=== PATIENT | male | born 1945 | race Caucasian/White ===

== ENCOUNTER 2017-02-03 15:59 | Emergency (ER) | payer OTHER ==
[~2017-02-03] VITALS: Ht 182.9 cm; Wt 107.6 kg
[~2017-02-03 15:59] MED LIST: CYM60 PO; GABA800T PO; GLIM1TAB2 PO; MAGN400T6 PO; METFTAB PO; METO100T14 PO; MULT-513 PO; OMEG10007 PO; OXYC1TAB3 PO; PRLSR20 PO; WARF5TAB90 PO; WARF7.5T PO
[2017-02-03 16:03] VITALS: TEMP 36.5; Ht 182.9 cm; Wt 107.6 kg
[2017-02-03 16:55] LABS: URINE APPEARANCE TURBID (CLEAR); URINE BILIRUBIN NEG (NEG); URINE COLOR DK YELLOW; URINE EPITHELIAL CELL AUTO 20-30 /lpf (0-5); URINE NITRITE POS (NEG); URINE PH 5.5 (4.5-7.5); UROBILINOGEN NEG (NEG); ZZUR CULT IF INDIC CLEAN CATCH YES
[2017-02-03 16:56] LABS: MANUAL MICROSCOPIC REQUIRED? NO; REVIEW REQ? NO
[2017-02-03] MEDS ORDERED: CEFTRIAXONE SOD INJ 1 GM ADDVIAL IV STA (17:09)
[2017-02-03] MEDS ORDERED: LSN5 PO (17:13)
[2017-02-03] MEDS ORDERED: CYM60 PO (17:13)
[2017-02-03] MEDS ORDERED: TADA5TAB11 PO (17:13)
[2017-02-03] MEDS ORDERED: SITA1TAB27 PO (17:13)
[2017-02-03] MEDS ORDERED: LPT40 PO (17:13)
[2017-02-03] MEDS ORDERED: OPTIRAY 320 IV PRN (17:15)
[2017-02-03 17:35] LABS: INR 1.9 (0.9-1.1); PROTHROMBIN TIME (PATIENT) 21.2 SECONDS (9.0-12.0)
[2017-02-03 17:46] LABS: BUN/CREATININE RATIO 16.5 (10-20); CALCIUM 9.2 mg/dl (8.5-10.1); CREATININE 1.3 mg/dl (0.60-1.40); POTASSIUM 4.4 mmol/L (3.5-5.1)
[2017-02-03 17:52] LABS: BASO % 0.2 %; BASO ABS # 0.02 K/uL (0-0.2); COMPLETE YES; EOS % 1.8 %; HEMATOCRIT 42.5 % (42-52); IG% 0.3 %; LYMPH % 13.1 %; LYMPH ABS # 1.15 K/uL (1.2-3.4); MEAN CELL VOLUME 86.9 fL (80-100); MEAN CORPUSCULAR HEMOGLOBIN 29.9 pg (25-34); MEAN CORPUSCULAR HGB CONC 34.4 g/dl (32-36); NEUT % 73.6 %; PLATELET COUNT 117 K/uL (130-400); PLT ESTIMATE DECREASED; RED BLOOD COUNT 4.89 M/uL (4.7-6.1); WHITE BLOOD COUNT 8.79 K/uL (4.8-10.8)
--- NOTE | 2017-02-03 18:05 | EMERGENCY ROOM VISIT NOTE ---
History Report prepared by Lemuel: Shiloh Ca Under the Supervision of: Dr. Speedy Walden M.D. First contact with patient: 16:29 Chief Complaint: URINARY SYMPTOMS Stated Complaint: BLADDER INFECTION Nursing Triage Summary: foul smelling urine, abd cramping. Incontinence. Feels dehydrated. History of Present Illness The patient is a 71 year old male who presents to the Emergency Room with complaints of persistent urinary symptoms starting 2 days ago. The patient has a history of UTI. He gets them 1-2 times per year. His last UTI was 2015. His doctors are unsure of the reason for his UTIs. His symptoms began with urinary incontinence. He notes that he felt the urge to urinate without a lot of warning. He would only urinate a small amount. He does feel like he is emptying his bladder. He had some headache and nausea yesterday which has resolved. He denies any bowel incontinence, diarrhea, fever, chills, vomiting, back pain, or abdominal pain. He notes that he does not drink a lot of fluids and has been drinking less since he started having incontinence. He does not have an enlarged prostate. He had a nerve stimulator taken out 4 days ago. The nerve stimulator was placed for leg pain which started as back pain. He has a history of ruptured AAA and diabetes. Source of History: patient Onset: 2 days ago Position: other (global) Quality: other (urinary symptoms) Timing: other (persistent) Associated Symptoms: + headache, + nausea, No fevers, No chills, No vomiting , No abdominal pain, No back pain, No diarrhea Note: Pt reports urinary incontinence. Pt denies bowel incontinence. Review of Systems See HPI for pertinent positives and negatives. A total of ten systems were reviewed and were otherwise negative. Past Medical & Surgical Medical Problems: (1) Diabetes (2) History of blood clots (3) History of diabetes mellitus (4) History of heart disease (5) History of hypertension (6) History of kidney stones (7) Hypertension Family History Diabetes mellitus FH: heart disease Gallbladder disease Hypertension Kidney disease Kidney stones Social History Smoking Status: Former Smoker Alcohol Use: none Drug Use: none Occupation Status: unemployed Current/Historical Medications Scheduled Atorvastatin (Atorvastatin Calcium), 40 MG PO DAILY Cefpodoxime Proxetil (Cefpodoxime Proxetil), 1 TAB PO BID Duloxetine HCl (Duloxetine HCl), 60 MG PO DAILY Fish Oil (Frazer-3), 2,000 MG PO DAILY Gabapentin (Neurontin), 800 MG PO TID Glimepiride (Glimepiride), 1 MG PO DAILY Lisinopril (Lisinopril), 5 MG PO DAILY Magnesium Oxide (Mag-Ox), 400 MG PO DAILY Metformin Ext Rel (Glucophage Ext Rel), 1,000 MG PO DAILY Metoprolol Tartrate (Lopressor) (Lopressor), 100 MG PO DAILY Multivitamins/Minerals (Mvi With Minerals), 1 TAB PO DAILY Omeprazole (Prilosec), 20 MG PO DAILY Sitagliptin (Januvia), 100 MG PO DAILY Tadalafil (Cialis), 5 MG PO DAILY Warfarin Sodium (Coumadin), 5 MG PO 5XWK Warfarin Sodium (Coumadin), 7.5 MG PO 2XWK Scheduled PRN Oxycodone Ir (Roxicodone Ir), 5 MG PO Q6H PRN for Pain Allergies Coded Allergies: Niacin (Verified Allergy, Intermediate, rash, SOB, 01/23/14) Physical Exam Vital Signs Date Time Temp Pulse Resp B/P (MAP) Pulse Ox O2 Delivery O2 Flow Rate FiO2 02/03/17 18:34 96 18 147/77 95 Room Air 02/03/17 16:03 36.5 95 16 120/77 94 Room Air Physical Exam GENERAL: Awake, alert, fatigued-appearing, in no acute distress HENT: Normocephalic, atraumatic. Mucous membranes dry. EYES: Normal conjunctiva. Sclera non-icteric. NECK: Supple. No nuchal rigidity. FROM. No JVD. RESPIRATORY: Clear to auscultation. CARDIAC: Regular rate, normal rhythm. Extremities warm and well perfused. Pulses equal. ABDOMEN: Obese, but soft. No tenderness to palpation. No rebound or guarding. No masses. : Nontender to palpation of the epididymis and testicles, cremaster normal. RECTAL: Prostate nontender to palpation, good rectal tone. MUSCULOSKELETAL: Chest examination reveals no tenderness. The back is symmetrical on inspection without obvious abnormality. There is no CVA tenderness to palpation. No joint edema. 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 Biphasic dopplerable DP/PT pulse in the left lower extremity. NEURO: Normal sensorium. No sensory or motor deficits noted. SKIN: No rash or jaundice noted. Medical Decision & Procedures Laboratory Results 02/03/17 17:20 Red Blood Count 4.89, Mean Corpuscular Volume 86.9, Mean Corpuscular Hemoglobin 29.9, Mean Corpuscular Hemoglobin Concent 34.4, Mean Platelet Volume 12.0, Neutrophils (%) (Auto) 73.6, Lymphocytes (%) (Auto) 13.1, Monocytes (%) (Auto) 11.0, Eosinophils (%) (Auto) 1.8, Basophils (%) (Auto) 0.2, Neutrophils # (Auto ) 6.46, Lymphocytes # (Auto) 1.15, Monocytes # (Auto) 0.97, Eosinophils # (Auto ) 0.16, Basophils # (Auto) 0.02 02/03/17 17:20 Test 02/03/17 16:35 02/03/17 17:20 Urine Color DK YELLOW Urine Appearance TURBID (CLEAR) Urine pH 5.5 (4.5-7.5) Urine Specific [place] 1.020 (1.000-1.030) Urine Protein 1+ (NEG) Urine Glucose (UA) NEG (NEG) Urine Ketones NEG (NEG) Urine Occult Blood 2+ (NEG) Urine Nitrite POS (NEG) Urine Bilirubin NEG (NEG) Urine Urobilinogen NEG (NEG) Urine Leukocyte Esterase LARGE (NEG) Urine WBC (Auto) >30 /hpf (0-5) Urine RBC (Auto) 5-10 /hpf (0-4) Urine Hyaline Casts (Auto) 1-5 /lpf (0-5) Urine Epithelial Cells (Auto) 20-30 /lpf (0-5) Urine Bacteria (Auto) 4+ (NEG) White Blood Count 8.79 K/uL (4.8-10.8) Red Blood Count 4.89 M/uL (4.7-6.1) Hemoglobin 14.6 g/dL (14.0-18.0) Hematocrit 42.5 % (42-52) Mean Corpuscular Volume 86.9 fL (80-100) Mean Corpuscular Hemoglobin 29.9 pg (25-34) Mean Corpuscular Hemoglobin Concent 34.4 g/dl (32-36) Platelet Count 117 K/uL (130-400) Mean Platelet Volume 12.0 fL (7.4-10.4) Neutrophils (%) (Auto) 73.6 % Lymphocytes (%) (Auto) 13.1 % Monocytes (%) (Auto) 11.0 % Eosinophils (%) (Auto) 1.8 % Basophils (%) (Auto) 0.2 % Neutrophils # (Auto) 6.46 K/uL (1.4-6.5) Lymphocytes # (Auto) 1.15 K/uL (1.2-3.4) Monocytes # (Auto) 0.97 K/uL (0.11-0.59) Eosinophils # (Auto) 0.16 K/uL (0-0.5) Basophils # (Auto) 0.02 K/uL (0-0.2) RDW Standard Deviation 47.0 fL (36.4-46.3) RDW Coefficient of Variation 14.8 % (11.5-14.5) Immature Granulocyte % (Auto) 0.3 % Immature Granulocyte # (Auto) 0.03 K/uL (0.00-0.02) Platelet Estimate DECREASED Red Blood Cell Morphology Unremarkable Prothrombin Time 21.2 SECONDS (9.0-12.0) Prothromb Time International Ratio 1.9 (0.9-1.1) Anion Gap 5.0 mmol/L (3-11) Est Creatinine Clear Calc Drug Dose 68.0 ml/min Estimated GFR () 64.5 Estimated GFR (Non- 55.7 BUN/Creatinine Ratio 16.5 (10-20) Calcium Level 9.2 mg/dl (8.5-10.1) Laboratory results reviewed by me Medications Administered Medications (Trade) Dose Ordered Sig/Dorinda Route Start Time Stop Time Status Last Admin Dose Admin Ceftriaxone Sodium (Rocephin Inj) 1 gm NOW STAT IV 02/03/17 17:09 02/03/17 17:12 DC 02/03/17 17:41 1 GM ED Course 1641: The patient was evaluated in room C1B. A complete history and physical exam was performed. 1709: Rocephin Inj 1 gm IV. 1725: I reevaluated the patient. He has a history of epididymitis. I performed a exam. Findings as listed above in physical exam. Medical Decision I reviewed the patient's past medical history, medications, and the nursing notes as described above. Differential diagnosis: UTI, renal stone, epididymitis, uncontrolled diabetes. Patient is a 71-year-old gentleman with a complicated past medical history recurrent UTI, ruptured AAA, diabetes presents to the emergency department complaining of urinary frequency for the past couple of days which he says is consistent with previous UTIs in the past per history of present illness. Patient arrives to the emergency department in no acute distress, afebrile with stable vital signs. Abdomen soft nontender nondistended and prostate nontender to palpation. Exam unremarkable. The patient's UA was grossly positive with gross hematuria. Otherwise CBC and creatinine within normal limits. Considering the patient's report of chronic back pain in the setting of these urinary symptoms infected stone is within differential. Patient was treated with ceftriaxone in the emergency department. CT scan was negative for renal stone and otherwise showed findings consistent with cystitis. Incidental vascular findings were discussed with radiology and appear chronic. Moreover the patient has a strong biphasic dopplerable pulse in the left lower extremity. The patient also recalls discussing "a bypass that wasn't really working" with his vascular surgeon in the past. Findings and plan discussed with patient and plan for antibiotics, PCP follow-up, and vascular surgery follow-up. Patient discharged per instructions. Impression Primary Impression: Urinary tract infection Scribe Attestation The scribe's documentation has been prepared under my direction and personally reviewed by me in its entirety. I confirm that the note above accurately reflects all work, treatment, procedures, and medical decision making performed by me. Departure Information Dispostion Home / Self-Care Prescriptions Cefpodoxime Proxetil (CEFPODOXIME PROXETIL) 100 Mg Tab 1 TAB PO BID for 7 Days, #14 TABS Prov: Speedy Walden M.D. 02/03/17 Referrals Dawson Lama III, M.D. 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 Your urine showed a urinary tract infection and given antibiotics for this. Otherwise, your exam, lab results, and CT scan did not show signs of an emergent condition. Return to the emergency department for worsening symptoms as described in the accompanying instructions.
--- NOTE | 2017-02-03 19:01 | DIAGNOSTIC IMAGING REPORT ---
CT SCAN OF THE ABDOMEN AND PELVIS WITH IV CONTRAST CLINICAL HISTORY: Bladder infection. COMPARISON STUDY: Abdominal CT dated 07/08/2007. TECHNIQUE: Following the IV administration of 93 cc of Optiray 320, CT scan of the abdomen and pelvis is performed from the lung bases to the proximal femora. Images are reviewed in the axial, sagittal, and coronal planes. IV contrast was administered without complication. Automated dose control exposure was utilized. A dose lowering technique was utilized adhering to the principles of ALARA. CT DOSE: 1395.20 mGy.cm FINDINGS: Lung bases: The heart is normal in size and without pericardial effusion. The coronary arteries are densely calcified. Emphysema is noted at the lung bases. There is no airspace consolidation or pleural effusion. There is a small hiatal hernia. Liver: The contrast-enhanced liver is enlarged, measuring 23 cm in length. The liver demonstrates diffusely diminished attenuation consistent with severe hepatic steatosis. Fatty sparing is seen adjacent to gallbladder fossa. There is no intrahepatic biliary ductal dilatation. The hepatic veins and portal veins are patent. Gallbladder: There are numerous calcified gallstones. There is no CT evidence of acute cholecystitis. Spleen: Normal in size and attenuation. Pancreas: Unremarkable. Adrenal glands: Unremarkable. Kidneys: The contrast enhanced kidneys demonstrate cortical atrophy and are without hydronephrosis. The kidneys enhance symmetrically. Abdominal vasculature: There is advanced atherosclerotic disease identified involving the abdominal aorta. There is a small infrarenal abdominal aortic aneurysm which measures 4.1 cm in AP diameter and 3.3 cm in transverse diameter. 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 The left bypass graft appears thrombosed. The right bypass graft is patent. Flow is shown within the heavily calcified [place] iliac arteries. Bowel: An umbilical hernia contains a nonobstructed segment of small bowel. No bowel obstruction is seen. There is mild colonic diverticulosis without CT evidence of acute diverticulitis. The appendix is well-visualized and normal. Peritoneum: There is no intraperitoneal free air or abdominal ascites. Lymphadenopathy: None. Pelvic viscera: The bladder wall is thickened and hyperemic. There is pericystic inflammation. The appearance is typical for cystitis. The prostate and seminal vesicles are normal as imaged. There are bilateral fat-containing inguinal hernias. Skeletal structures: The skeletal structures are osteopenic. There is lumbosacral spondylosis with evidence of laminectomy at and posterior fusion at L5-S1. No lytic or blastic lesions are seen. IMPRESSION: 1. Findings are typical for cystitis. Correlation with clinical findings and urinalysis will be required. 2. Hepatomegaly and severe hepatic steatosis. 3. Cholelithiasis. 4. There is a 4.1 cm infrarenal abdominal aortic aneurysm. 5. There is a small bowel containing umbilical hernia. No bowel obstruction is seen. 6. 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 The left iliac graft appears thrombosed. Flow is shown within the heavily calcified [place] iliac arteries. 7. Additional findings as above. Electronically signed by: Nimesh Medrano M.D. 02/03/2017 6:59 PM Dictated Date/Time: 02/03/2017 6:50 PM
[2017-02-03] MEDS ORDERED: CEFP100T7 PO (19:31)
[2017-02-03 19:50] VITALS: BP 131/71; PULSE 81; O2SAT 97
--- NOTE | 2017-02-05 15:21 | Pharmacy Progress Note ---
ED Pharmacist Culture FollowUp Date of Service: Feb 05, 2017. Patient was sent home with a prescription for cefpodoxime, which should cover the E. coli growing from the patient's urine culture.
== END 2017-02-03 19:51 | disposition home or self-care (01) ==
LOC: C.EDB 16:01 → C.EDC 19:51
DX: N39.0 Urinary tract infection, site not specified (principal); N40.0 Benign prostatic hyperplasia without lower urinary tract symptoms; E11.9 Type 2 diabetes mellitus without complications; I10 Essential (primary) hypertension; Z87.440 Personal history of urinary (tract) infections; Z86.79 Personal history of other diseases of the circulatory system; Z87.442 Personal history of urinary calculi; Z86.718 Personal history of other venous thrombosis and embolism; Z87.891 Personal history of nicotine dependence; Z79.84 Long term (current) use of oral hypoglycemic drugs; Z79.01 Long term (current) use of anticoagulants; Z83.3 Family history of diabetes mellitus; Z82.49 Family history of ischemic heart disease and other diseases of the circulatory system; Z84.1 Family history of disorders of kidney and ureter

== ENCOUNTER 2017-05-01 20:16 | Emergency (ER) | payer OTHER ==
[~2017-05-01] VITALS: Ht 182.9 cm; Wt 108.0 kg
[~2017-05-01 20:16] MED LIST changes: +LPT40 PO; +LSN5 PO; +SITA1TAB27 PO; +TADA5TAB11 PO
[2017-05-01 20:22] VITALS: TEMP 36.9; Ht 182.9 cm; Wt 108.0 kg
[2017-05-01] MEDS ORDERED: MBXC OR (21:11)
[2017-05-01] MEDS ORDERED: DEXAMETHASONE CONC SOLN 0.078 MG, NYSTATIN SUSP 0.625 ML, DiphenhydrAMINE HCL SYRUP 6.2... PO STA ×5 (21:14)
[2017-05-01] MEDS ORDERED: MAGIC SWIZZLE PO ONE (21:15)
[2017-05-01] MEDS ORDERED: LIDOCAINE HCL 2% VISCOUS SOLN 1.25 ML, DiphenhydrAMINE HCL SYRUP 3.125 MG, ALUMINUM/MAG... MT STA ×4 (21:25)
[2017-05-01 21:53] VITALS: BP 141/79; PULSE 85; O2SAT 94
--- NOTE | 2017-05-02 00:03 | EMERGENCY ROOM VISIT NOTE ---
History Report prepared by Lemuel: Maggie Kennedy Under the Supervision of: Jorge FryeO. First contact with patient: 20:41 Chief Complaint: OTHER COMPLAINT Stated Complaint: FOOT AND MOUTH History of Present Illness The patient is a 71 year old male who presents to the Emergency Room with complaints of worsening mouth pain for the past 4 days. Initially he noticed a small lesion on the inside of his lower lip. He now has multiple painful sores throughout his mouth and into his throat. He has pain with swallowing. The patient has a history of cold sores. He denies any rash on his hands or feet. He lives alone and denies any sick contacts. Pt denies headache, fevers, chest pain, shortness of breath, nausea, vomiting, diarrhea, pain with urination, and melena. The patient rates his pain as a 5/10 in severity. Source of History: patient Onset: 4 days ago Position: lip, throat Symptom Intensity: 5/10 Quality: other (sore) Timing: worsening Modifying Factors (Worsening): other (swallowing) Associated Symptoms: No fevers, No headache, No chest pain, No SOB, No nausea, No vomiting, No melena, No diarrhea, No urinary symptoms, No rash Review of Systems See HPI for pertinent positives & negatives. A total of 10 systems reviewed and were otherwise negative. Past Medical & Surgical Medical Problems: (1) Diabetes (2) History of blood clots (3) History of diabetes mellitus (4) History of heart disease (5) History of hypertension (6) History of kidney stones (7) Hypertension Family History Diabetes mellitus FH: heart disease Gallbladder disease Hypertension Kidney disease Kidney stones Social History Smoking Status: Former Smoker Alcohol Use: none Drug Use: none Housing Status: lives alone Occupation Status: unemployed Current/Historical Medications Scheduled Atorvastatin (Atorvastatin Calcium), 40 MG PO DAILY Duloxetine HCl (Duloxetine HCl), 60 MG PO DAILY Fish Oil ([place]-3), 2,000 MG PO DAILY Gabapentin (Neurontin), 800 MG PO BID Glimepiride (Glimepiride), 1 MG PO DAILY Lisinopril (Lisinopril), 5 MG PO DAILY Magic Swizzle (Magic Swizzle - SUCRALFA/ALUM/MAG/DIPHEN/LIDO), 3-4 TSP OR Q6H Magnesium Oxide (Mag-Ox), 400 MG PO DAILY Metformin Ext Rel (Glucophage Ext Rel), 1,000 MG PO DAILY Metoprolol Tartrate (Lopressor) (Lopressor), 100 MG PO DAILY Multivitamins/Minerals (Mvi With Minerals), 1 TAB PO DAILY Omeprazole (Prilosec), 20 MG PO DAILY Sitagliptin (Januvia), 100 MG PO DAILY Tadalafil (Cialis), 5 MG PO DAILY Warfarin Sodium (Coumadin), 5 MG PO 5XWK Warfarin Sodium (Coumadin), 7.5 MG PO 2XWK Scheduled PRN Oxycodone Ir (Roxicodone Ir), 5 MG PO Q6H PRN for Pain Allergies Coded Allergies: Niacin (Verified Allergy, Intermediate, rash, SOB, 01/23/14) Physical Exam Vital Signs Date Time Temp Pulse Resp B/P (MAP) Pulse Ox O2 Delivery O2 Flow Rate FiO2 05/01/17 21:53 85 20 141/79 94 05/01/17 20:22 36.9 85 20 146/81 92 Room Air Physical Exam GENERAL: Sitting up in bed, disheveled, alert, well appearing, well nourished, no distress, non-toxic EYE EXAM: normal conjunctiva. OROPHARYNX: Multiple oral lesions on inner lip, soft palate, and tongue, mucous membranes are moist NECK: supple, no nuchal rigidity, no adenopathy, non-tender LUNGS: Clear to auscultation. Normal chest wall mechanics HEART: no murmurs, S1 normal and S2 normal ABDOMEN: abdomen soft, non-tender, normo-active bowel sounds, no masses, no rebound or guarding. BACK: Back is symmetrical on inspection and there is no deformity, no midline tenderness, no CVA tenderness. SKIN: no rashes and no bruising UPPER EXTREMITIES: upper extremities are grossly normal. No lesions present. LOWER EXTREMITIES: No pitting edema. Right above the knee amputation, LLE without lesions. NEURO EXAM: Normal sensorium Medical Decision & Procedures Medications Administered Medications (Trade) Dose Ordered Sig/Dorinda Route Start Time Stop Time Status Last Admin Dose Admin Lidocaine HCl/ Diphenhydramine HCl/Al Hydroxide/ Mg Hydroxide/ Glycerin/Barcode NOW STAT MT 05/01/17 21:25 05/01/17 21:26 DC 05/01/17 21:48 5 ML ED Course ED COURSE: Vital signs were reviewed and showed hypertensive. The patients medical record was reviewed The above diagnostic studies were performed and reviewed. ED treatments and interventions as stated above. 2040: The patient was evaluated in room C3. A complete history and physical examination was performed. 2124: Lidocaine HCl/Diphenhydramine HCl/Al Hydroxide/Mg Hydroxide/Glycerin MT 2124: Upon reevaluation, the patient is resting comfortably. I discussed my findings with the patient and he understands and agrees with the treatment plan. Based on the patients age, coexisting illnesses, exam and lab findings the decision to treat as an outpatient was made. The patient remained stable while under my care. The patient appeared well at the time of discharge. Medical Decision Differential diagnoses includes herpangina, hand foot and mouth, strep, peritonsillar abscess, retropharyngeal abscess. Patient is a 71-year-old male who presents to ER for a sore throat associated with ulcers. On exam patient has clear herpangina. No other complaints. No signs of Tevin angina. No peritonsillar abscess. No signs of retropharyngeal abscess. Lungs are clear. Abdominal exam was benign. Patient was updated at bedside and discharged following medics was a little to follow-up with PCP. Discussed with Pt concerning signs and symptoms to watch out for. Pt was instructed to follow up with their PCP and discussed with the patient their option to return to the ED at anytime for persistent or worsening symptoms. The appropriate anticipatory guidance and out-patient management, including indications for return to the emergency department, were explained at length to the patient and understood. Medication Reconcilliation Current Medication List: was personally reviewed by me Blood Pressure Screening Patient's blood pressure: Elevated blood pressure Blood pressure disposition: Elevated BP felt to be situational Impression Primary Impression: Herpangina Scribe Attestation The scribe's documentation has been prepared under my direction and personally reviewed by me in its entirety. I confirm that the note above accurately reflects all work, treatment, procedures, and medical decision making performed by me. Departure Information Dispostion Home / Self-Care Prescriptions Magic Swizzle (Magic Swizzle - SUCRALFA/ALUM/MAG/DIPHEN/LIDO) 240 Ml Susp 3-4 TSP OR Q6H for sores, #240 ML 100ml Sucralfate 50ml Maalox 50ml Diphenhydramine 40ml 2% Aq. Lidocaine Swish and Swallow Prov: Mike Arora, 05/01/17 Referrals Dawson Lama III, M.D. (PCP) Forms HOME CARE DOCUMENTATION FORM, IMPORTANT VISIT INFORMATION, WORK / SCHOOL INSTRUCTIONS Patient Instructions ED Hand Foot Mouth Disease [facility], [facility] Additional Instructions Please follow up with your primary care doctor with in the next 24 hours. Any worsening of your symptoms, please return to the ED immediately. This includes any fevers greater than 100.4, worsening pain, chest pain, shortness breath, persistent nausea, vomiting, unable to eat or drink, or any other concerning signs or symptoms from your standpoint. Please follow up with your primary care doctor.
== END 2017-05-01 21:54 | disposition home or self-care (01) ==
LOC: C.EDB 20:16 → C.EDC 21:54
DX: B08.5 Enteroviral vesicular pharyngitis (principal); E11.9 Type 2 diabetes mellitus without complications; Z86.718 Personal history of other venous thrombosis and embolism; I11.9 Hypertensive heart disease without heart failure; Z87.442 Personal history of urinary calculi; Z83.3 Family history of diabetes mellitus; Z82.49 Family history of ischemic heart disease and other diseases of the circulatory system; Z83.79 Family history of other diseases of the digestive system; Z84.1 Family history of disorders of kidney and ureter; Z87.891 Personal history of nicotine dependence; Z79.01 Long term (current) use of anticoagulants; Z79.899 Other long term (current) drug therapy